=== PATIENT | male | born 1975 | race Caucasian/White ===

== ENCOUNTER → 2018-05-30 14:54 | Outpatient (CLI) | payer OTHER, SELFPAY ==
--- NOTE | 2018-05-30 | DI.US.S_ITS ---
PROCEDURE: US SOFT TISSUE HEAD AND NECK INDICATIONS: LOCALIZED SWELLING, MASS AND LUMP, NECK TECHNIQUE: Real-time scanning was performed of the neck region of interest, with image documentation. COMPARISON: None. FINDINGS: Avascular, isoechoic lobular mass present corresponding to the palpable abnormality within the right posterior neck measuring 3.9 x 2.0 x 5.0 cm. IMPRESSION: Soft tissue mass which may be related to a lipoma, however findings are nonspecific and differential diagnosis would include both benign and malignant etiology. If indicated soft tissue MRI could be performed for further assessment. Dictated by: Rc JACOBO Interpreted: Thee Freeman MD on 05/30/2018 at 16:30 Approved by: Thee Freeman M.D. on 05/30/2018 at 17:40
== END ==
PROVIDERS: PCP Specialist; Visit Provider Specialist
DX: R22.1 Localized swelling, mass and lump, neck (principal)
CPT/HCPCS: 76536

== ENCOUNTER → 2018-12-17 09:50 | Outpatient (CLI) | payer OTHER, SELFPAY ==
[2018-12-17 10:41] LABS: Influenza A and B by PCR Rapid Negative (Negative)
== END ==
PROVIDERS: PCP Specialist; Visit Provider Nurse Practitioner
DX: R05 Cough (principal)
CPT/HCPCS: 87400; 87502